=== PATIENT | male | born 1970 | race Two or more races ===

== ENCOUNTER 2016-06-28 12:22 | Inpatient (IN) | payer BC ==
[~2016-06-28] VITALS: Ht 172.7 cm; Wt 108.9 kg
--- NOTE | 2016-06-28 12:28 | PHYS DOC ---
Adult General Chief Complaint Chief Complaint: OTHER COMPLAINTS HPI HPI Patient is a 46 year old male presenting to the emergency department for evaluation of fever and positive blood cultures. He has been in [facility] since 2 days ago and yesterday morning started having fevers sweats diffuse weakness nausea vomiting headache cough. He was seen at an emergency department in [place] and they called him and told him that he needs to go to the emergency department for positive blood cultures. I called the phone number [phone] and spoke to the nurse practitioner at the [facility] and she told me that 2 out of 2 blood cultures were positive that were drawn at 240 yesterday and they were positive for gram-positive cocci suggestive of streptococci or enterococci. His chest x-ray was normal. Urinalysis was normal however his white blood cell count was 13.5. He says that he is feeling somewhat better and he is afebrile currently but still feels somewhat off. He denies any recent tick bites or rashes dysuria foreign travel or diarrhea. Review of Systems Review of Systems Constitutional: + fever and chills [] Eyes: Denies change in visual acuity, redness, or eye pain [] HENT: Denies nasal congestion or sore throat [] Respiratory: + cough. No shortness of breath [] Cardiovascular: No additional information not addressed in HPI [] GI: Denies abdominal pain. + nausea, vomiting. No bloody stools or diarrhea [] : Denies dysuria or hematuria [] Musculoskeletal: Denies back pain or joint pain. +arthralgias and myalgias Integument: Denies rash or skin lesions [] Neurologic: Denies headache, focal weakness or sensory changes [] Current Medications Current Medications Current Medications Medications (Trade) Dose Ordered Sig/[facility] Start Time Stop Time Status Last Admin Dose Admin Azithromycin 250 ml @ 250 mls/hr 1X ONCE 06/28/16 14:00 06/28/16 14:59 Ceftriaxone Sodium 2 gm/ Sodium Chloride 100 ml @ 200 mls/hr Q24H 06/28/16 14:00 06/28/16 14:17 200 MLS/HR Fentanyl Citrate (Fentanyl 2ml Vial) 50 mcg PRN Q2HR PRN 06/28/16 14:00 06/29/16 13:59 Ketorolac Tromethamine (Toradol) 30 mg 1X ONCE 06/28/16 13:00 06/28/16 13:01 DC 06/28/16 13:14 30 MG Ondansetron HCl (Zofran) 4 mg PRN Q8HRS PRN 06/28/16 14:00 06/29/16 13:59 Sodium Chloride 1,000 ml @ 1,000 mls/hr 1X ONCE 06/28/16 13:00 06/28/16 13:59 DC 06/28/16 13:16 1,000 MLS/HR Allergies Allergies Allergies Coded Allergies Type Severity Reaction Last Updated Verified No Known Drug Allergies 06/28/16 No Physical Exam Physical Exam Constitutional: Well developed, well nourished, no acute distress, non-toxic appearance. [] HENT: Normocephalic, atraumatic, bilateral external ears normal, oropharynx moist, no oral exudates, nose normal. [] Eyes: PERRLA, EOMI, conjunctiva normal, no discharge. [] Neck: Normal range of motion, no tenderness, supple, no stridor. [] Cardiovascular:Heart rate regular rhythm, no murmur [] Lungs & Thorax: Bilateral breath sounds clear to auscultation [] Abdomen: Bowel sounds normal, soft, no tenderness, no masses, no pulsatile masses. [] Skin: Warm, dry, no erythema, no rash. [] Back: No tenderness, no CVA tenderness. [] Extremities: No tenderness, no cyanosis, no clubbing, ROM intact, no edema. [] Neurologic: Alert and oriented X 3, normal motor function, normal sensory function, no focal deficits noted. [] Current Patient Data Vital Signs Vital Signs Date Time Temp Pulse Resp B/P (MAP) Pulse Ox O2 Delivery O2 Flow Rate FiO2 06/28/16 12:35 99.0 87 19 141/75 (97) 95 Room Air 99.0 Lab Values Laboratory Tests Test 06/28/16 12:45 White Blood Count 17.2 x10^3/uL (4.0-11.0) H Red Blood Count 4.89 x10^6/uL (4.30-5.70) Hemoglobin 14.9 g/dL (13.0-17.5) Hematocrit 42.7 % (39.0-53.0) Mean Corpuscular Volume 87 fL (79-100) Mean Corpuscular Hemoglobin 31 pg (25-35) Mean Corpuscular Hemoglobin Concent 35 g/dL (31-37) Red Cell Distribution Width 13.3 % (11.5-14.5) Platelet Count 189 x10^3/uL (140-400) Neutrophils (%) (Auto) 89 % (31-73) H Lymphocytes (%) (Auto) 8 % (24-48) L Monocytes (%) (Auto) 3 % (0-9) Eosinophils (%) (Auto) 0 % (0-3) Basophils (%) (Auto) 0 % (0-3) Neutrophils # (Auto) 15.3 x10^3uL (1.8-7.7) H Lymphocytes # (Auto) 1.3 x10^3/uL (1.0-4.8) Monocytes # (Auto) 0.5 x10^3/uL (0.0-1.1) Eosinophils # (Auto) 0.0 x10^3/uL (0.0-0.7) Basophils # (Auto) 0.0 x10^3/uL (0.0-0.2) Segmented Neutrophils % 54 % (35-66) Band Neutrophils % 33 % (0-9) H Lymphocytes % 10 % (24-48) L Monocytes % 2 % (0-10) Eosinophils % 1 % (0-5) Platelet Estimate Adequate (ADEQUATE) Prothrombin Time 15.1 SEC (11.7-14.0) H Prothrombin Time INR 1.3 (0.8-1.1) H PTT 32 SEC (24-38) Sodium Level 136 mmol/L (136-145) Potassium Level 3.1 mmol/L (3.5-5.1) L Chloride Level 101 mmol/L (98-107) Carbon Dioxide Level 29 mmol/L (21-32) Anion Gap 6 (6-14) Blood Urea Nitrogen 13 mg/dL (8-26) Creatinine 1.1 mg/dL (0.7-1.3) Estimated GFR (Cockcroft-Gault) 72.4 BUN/Creatinine Ratio 12 (6-20) Glucose Level 117 mg/dL (70-99) H Lactic Acid Level 1.1 mmol/L (0.4-2.0) Calcium Level 8.5 mg/dL (8.5-10.1) Magnesium Level 1.6 mg/dL (1.8-2.4) L Total Bilirubin 1.8 mg/dL (0.2-1.0) H Aspartate Amino Transferase (AST) 22 U/L (15-37) Alanine Aminotransferase (ALT) 34 U/L (16-63) Alkaline Phosphatase 52 U/L (46-116) Creatine Kinase 361 U/L (39-308) H C-Reactive Protein, Quantitative 239.9 mg/L (0-3.3) H Total Protein 7.1 g/dL (6.4-8.2) Albumin 3.2 g/dL (3.4-5.0) L Albumin/Globulin Ratio 0.8 (1.0-1.7) L Lipase 371 U/L (73-393) Laboratory Tests 06/28/16 12:45 Laboratory Tests 06/28/16 12:45 EKG EKG [] Radiology/Procedures Radiology/Procedures Indication: Cough and fever. Time of exam 12:58 PM FINDINGS: The right hemidiaphragm is mildly elevated. There is some increased density noted on the lateral view posteriorly. This may be within the right lung base and is suspicious for pneumonia. The left lung appears clear. No effusion or pneumothorax is seen. Impression: Findings suspect for pneumonia in the right lower lobe. DICTATED and SIGNED BY: AMAURI GALEANA MD DATE: 06/28/16 1313 Course & Med Decision Making Course & Med Decision Making Patient does not appear toxic however he is bacteremic confirmed by blood culture. Patient will be admitted for further evaluation and treatment. Patient started on rocephin and zithromax for now. Patient aware and agreeable with plan for admit. Dragon Disclaimer Dragon Disclaimer This electronic medical record was generated, in whole or in part, using a voice recognition dictation system. Departure Departure Impression: Primary Impression: CAP (community acquired pneumonia) Additional Impressions: Bacteremia Leukocytosis Disposition: 09 ADMITTED INPATIENT Admitting Physician: Estelle Maria Condition: GOOD Problem Qualifiers ATIF CUI DO June 28, 2016 12:28
[2016-06-28] MEDS ORDERED: KETOROLAC TROMETHAMINE 30 MG/ML INJ. IV ONE (13:00)
[2016-06-28] MEDS ORDERED: IV NORMAL SALINE 1000ML BAG 1,000 ML IV ONE (13:00)
[2016-06-28 13:02] LABS: BASO % 0 % (0-3); EOS % 0 % (0-3); HEMATOCRIT 42.7 % (39.0-53.0); HEMOGLOBIN 14.9 g/dL (13.0-17.5); LYMPH # 1.3 x10^3/uL (1.0-4.8); LYMPH % 8 % (24-48); MEAN CORPUSCULAR HEMOGLOBIN 31 pg (25-35); MEAN CORPUSCULAR HGB CONC 35 g/dL (31-37); MEAN CORPUSCULAR VOLUME 87 fL (79-100); MONO % 3 % (0-9); NEUT % 89 % (31-73); PLATELET COUNT 189 x10^3/uL (140-400); RED BLOOD COUNT 4.89 x10^6/uL (4.30-5.70); RED CELL DISTRIBUTION WIDTH 13.3 % (11.5-14.5); WHITE BLOOD COUNT 17.2 x10^3/uL (4.0-11.0)
--- NOTE | 2016-06-28 13:17 | RAD ---
Indication: Cough and fever. Time of exam 12:58 PM FINDINGS: The right hemidiaphragm is mildly elevated. There is some increased density noted on the lateral view posteriorly. This may be within the right lung base and is suspicious for pneumonia. The left lung appears clear. No effusion or pneumothorax is seen. Impression: Findings suspect for pneumonia in the right lower lobe.
[2016-06-28 13:18] LABS: INR 1.3 (0.8-1.1); PROTHROMBIN TIME PATIENT 15.1 SEC (11.7-14.0)
[2016-06-28 13:35] LABS: CALCIUM 8.5 mg/dL (8.5-10.1); CREATININE 1.1 mg/dL (0.7-1.3); GFR 72.4; POTASSIUM 3.1 mmol/L (3.5-5.1)
[2016-06-28 13:41] LABS: ALBUMIN 3.2 g/dL (3.4-5.0); ALBUMIN/GLOBULIN RATIO 0.8 (1.0-1.7); MAGNESIUM 1.6 mg/dL (1.8-2.4); TOTAL BILIRUBIN 1.8 mg/dL (0.2-1.0); TOTAL PROTEIN 7.1 g/dL (6.4-8.2)
[2016-06-28 13:51] LABS: % EOS 1 % (0-5)
[2016-06-28 13:54] LABS: C-REACTIVE PROTEIN 239.9 mg/L (0-3.3)
[2016-06-28] MEDS ORDERED: AZITHRMYCN 500MG IVPB FOR OMNI 250 ML IV ONE (14:00)
[2016-06-28] MEDS ORDERED: fentaNYL PF VIAL 100 MCG/2 ML VIAL IV PRN (14:00)
[2016-06-28] MEDS ORDERED: ONDANSETRON PF 4 MG/2 ML VIAL. IV PRN (14:00)
[2016-06-28 14:01] LABS: PLT ESTIMATE ADEQUATE (ADEQUATE)
[2016-06-28 15:31] LABS: BILIRUBIN,URINE NEGATIVE (NEG); GLUCOSE,URINE NEGATIVE (NEG); NITRITE,URINE NEGATIVE (NEG); PROTEIN,URINE NEGATIVE (NEG-TRACE)
[2016-06-28 15:35] VITALS: BP 132/84
[2016-06-28 15:39] LABS: BACTERIA,URINE 0 /HPF (0-FEW); RBC,URINE OCC /HPF (0-2); SQUAMOUS EPITHELIAL CELL,UR OCC /LPF; WBC,URINE 0 /HPF (0-4)
[2016-06-28] MEDS ORDERED: MAGNESIUM SULFATE 2GM 50 ML IV ONE (16:45)
[2016-06-28] MEDS ORDERED: POTASSIUM CHLORIDE 20 MEQ TABLET.ER. PO ONE (16:45)
--- NOTE | 2016-06-28 16:48 | PDOC1 ---
History and Physical Date of Admission Date of Admission DATE: 06/28/16 TIME: 16:40 Identification/Chief Complaint Chief Complaint confusion, fever yesterday Problems: Source Source: Chart review, Patient History of Present Illness History of Present Illness MR. Light, is a 46 year old male admit for fever 2 days ago and positive blood cultures. Was in [facility] since 2 days ago, was in the ER at [facility], for fevers sweats, nausea and some confusion. He complains of pain to me, but chronic right hip pain w. acute worsening is the main pain complaint. COugh reported in ER here, none to me. He was called by ER for pos blood cx, the ER called [phone], reported 2 out of 2 blood cultures gram-positive cocci suggestive of streptococci or enterococci. CXR normal there, and WBC 13. now RLL PNA and WBC 17 Past Medical History Cardiovascular: No pertinent hx Pulmonary: No pertinent hx GI: No pertinent hx Heme/Onc: No pertinent hx Hepatobiliary: No pertinent hx Psych: No pertinent hx Rheumatologic: No pertinent hx Infectious disease: No pertinent hx ENT: No pertinent hx Renal/: No pertinent hx Endocrine: No pertinent hx Dermatology: No pertinent hx Past Surgical History Past Surgical History: Other (right hip injection, wound) Family History Family History: No Significant Social History Smoke: No ALCOHOL: social Drugs: None Current Problem List Problem List Problems Medical Problems: (1) Bacteremia Status: Acute (2) CAP (community acquired pneumonia) Status: Acute (3) Leukocytosis Status: Acute Problems: Current Medications Current Medications Current Medications Sodium Chloride 1,000 ml @ 1,000 mls/hr 1X ONCE IV Last administered on 13:16; Start 06/28/16 at 13:00; Stop 06/28/16 at 13:59; Status DC Ketorolac Tromethamine (Toradol) 30 mg 1X ONCE IV Last administered on 13:14; Start 06/28/16 at 13:00; Stop 06/28/16 at 13:01; Status DC Ceftriaxone Sodium 2 gm/ Sodium Chloride 100 ml @ 200 mls/hr Q24H IV Last administered on 06/28/16 14:17; Start 06/28/16 at 14:00 Azithromycin 250 ml @ 250 mls/hr 1X ONCE IV ; Start 06/28/16 at 14:00; Stop at 14:59; Status DC Ondansetron HCl (Zofran) 4 mg PRN Q8HRS PRN IV NAUSEA/VOMITING; Start 06/28/16 at 14:00; Stop 06/29/16 at 13:59 Fentanyl Citrate (Fentanyl 2ml Vial) 50 mcg PRN Q2HR PRN IV PAIN Last administered on 06/28/16t 16:21; Start 06/28/16 at 14:00; Stop 06/29/16 at 13:59 Magnesium Sulfate/ Dextrose 50 ml @ 25 mls/hr 1X ONCE IV ; Start 06/28/16 at 16 :30; Stop 06/28/16 at 18:29; Status UNV Potassium Chloride (Klor-Con) 40 meq 1X ONCE PO ; Start 06/28/16 at 16:30; Stop 06/28/16 at 16:31; Status UNV Allergies Allergies: Coded Allergies: No Known Drug Allergies (Unverified , 06/28/16) ROS Review of System 20 lbs weight gain 6 mos, stress eating, General: YES: Chills, Fatigue, No: Night Sweats, Appetite, Other PSYCHOLOGICAL ROS: No: Anxiety, Behavioral Disorder, Concentration difficultie , Decreased libido, Depression, Disorientation, Hallucinations, Hostility, Irritablity, Memory difficulties, Mood Swings, Obsessive thoughts, Physical abuse, Sexual abuse, Sleep disturbances, Suicidal ideation, Other HEENT: YES: Heacaches, No: Visual Changes, Hearing change, Nasal congestion, Nasal discharge, Oral lesions, Sinus pain, Sore Throat, Epistaxis, Sneezing, Snoring, Tinnitus, Vertigo, Vocal changes, Other Respiratory: YES: Cough, No: Hemoptysis, Orthopnea, Pleuritic Pain, Shortness of breath, SOB with excertion, Sputum Changes, Stridor, Tachypnea, Wheezing, Other Cardiovascular: No Chest Pain, No Palpitations, No Orthopnea, No Paroxysmal Noc. Dyspnea, No Edema, No Lt Headedness, No Other Gastrointestinal: No Nausea, No Vomiting, No Abdominal Pain, No Diarrhea, No Constipation, No Melena, No Hematochezia, No Other Genitourinary: No Dysuria, No Frequency, No Incontinence, No Hematuria, No Retention, No Discharge, No Urgency, No Pain, No Flank Pain, No Other, No , No , No , No , No , No , No Musculoskeletal: Yes Pain In: (right hip, chronic), No Gait Disturbance, No Joint Pain, No Joint Stiffness, No Joint Swelling, No Muscle Pain, No Muscular Weakness, No Swelling In:, No Other Neurological: Yes Confusion (yesterday, better today), No Behavorial Changes, No Bowel/Bladder ControlChng, No Dizziness, No Gait Disturbance, No Headaches, No Impaired Coord/balance, No Memory Loss, No Numbness/Tingling, No Seizures, No Speech Problems, No Tremors, No Visual Changes, No Weakness, No Other Skin: Yes Dry Skin, No Eczema, No Hair Changes, No Lumps, No Mole Changes, No Mottling, No Nail Changes, No Pruritus, No Rash, No Skin Lesion Changes, No Other, No Acne Physical Exam Physical Exam no menigismus, no psoas sign, no photophobia, complains of minimal phonophobia, General: Alert, Oriented X3, Cooperative, No acute distress HEENT: Atraumatic, PERRLA, EOMI, Mucous membr. moist/pink Lungs: Clear to auscultation, Normal air movement Heart: S1S2, no murmurs Abdomen: Normal bowel sounds, Soft, No tenderness Rectal Exam: not examined Extremities: No clubbing, No cyanosis, No edema, Normal pulses Skin: No rashes, No breakdown, No significant lesion Psych/Mental Status: Mental status NL Vitals Vitals Vital Signs Date Time Temp Pulse Resp B/P (MAP) Pulse Ox O2 Delivery O2 Flow Rate FiO2 06/28/16 16:21 Room Air 06/28/16 15:35 98.6 75 20 132/84 (100) 95 98.6 Labs Labs Laboratory Tests Test 06/28/16 12:45 06/28/16 15:25 White Blood Count 17.2 x10^3/uL (4.0-11.0) Red Blood Count 4.89 x10^6/uL (4.30-5.70) Hemoglobin 14.9 g/dL (13.0-17.5) Hematocrit 42.7 % (39.0-53.0) Mean Corpuscular Volume 87 fL (79-100) Mean Corpuscular Hemoglobin 31 pg (25-35) Mean Corpuscular Hemoglobin Concent 35 g/dL (31-37) Red Cell Distribution Width 13.3 % (11.5-14.5) Platelet Count 189 x10^3/uL (140-400) Neutrophils (%) (Auto) 89 % (31-73) Lymphocytes (%) (Auto) 8 % (24-48) Monocytes (%) (Auto) 3 % (0-9) Eosinophils (%) (Auto) 0 % (0-3) Basophils (%) (Auto) 0 % (0-3) Neutrophils # (Auto) 15.3 x10^3uL (1.8-7.7) Lymphocytes # (Auto) 1.3 x10^3/uL (1.0-4.8) Monocytes # (Auto) 0.5 x10^3/uL (0.0-1.1) Eosinophils # (Auto) 0.0 x10^3/uL (0.0-0.7) Basophils # (Auto) 0.0 x10^3/uL (0.0-0.2) Segmented Neutrophils % 54 % (35-66) Band Neutrophils % 33 % (0-9) Lymphocytes % 10 % (24-48) Monocytes % 2 % (0-10) Eosinophils % 1 % (0-5) Platelet Estimate Adequate (ADEQUATE) Prothrombin Time 15.1 SEC (11.7-14.0) Prothromb Time International Ratio 1.3 (0.8-1.1) Activated Partial Thromboplast Time 32 SEC (24-38) Sodium Level 136 mmol/L (136-145) Potassium Level 3.1 mmol/L (3.5-5.1) Chloride Level 101 mmol/L (98-107) Carbon Dioxide Level 29 mmol/L (21-32) Anion Gap 6 (6-14) Blood Urea Nitrogen 13 mg/dL (8-26) Creatinine 1.1 mg/dL (0.7-1.3) Estimated GFR (Cockcroft-Gault) 72.4 BUN/Creatinine Ratio 12 (6-20) Glucose Level 117 mg/dL (70-99) Lactic Acid Level 1.1 mmol/L (0.4-2.0) Calcium Level 8.5 mg/dL (8.5-10.1) Magnesium Level 1.6 mg/dL (1.8-2.4) Total Bilirubin 1.8 mg/dL (0.2-1.0) Aspartate Amino Transf (AST/SGOT) 22 U/L (15-37) Alanine Aminotransferase (ALT/SGPT) 34 U/L (16-63) Alkaline Phosphatase 52 U/L (46-116) Creatine Kinase 361 U/L (39-308) C-Reactive Protein, Quantitative 239.9 mg/L (0-3.3) Total Protein 7.1 g/dL (6.4-8.2) Albumin 3.2 g/dL (3.4-5.0) Albumin/Globulin Ratio 0.8 (1.0-1.7) Lipase 371 U/L (73-393) Urine Collection Type Unknown Urine Color Yellow Urine Clarity Clear Urine pH 7.0 Urine Specific Angela 1.010 Urine Protein Negative mg/dL (NEG-TRACE) Urine Glucose (UA) Negative mg/dL (NEG) Urine Ketones (Stick) Negative mg/dL (NEG) Urine Blood Negative (NEG) Urine Nitrite Negative (NEG) Urine Bilirubin Negative (NEG) Urine Urobilinogen Dipstick 1.0 mg/dL (0.2 mg/dL) Urine Leukocyte Esterase Negative (NEG) Urine RBC Occ /HPF (0-2) Urine WBC 0 /HPF (0-4) Urine Squamous Epithelial Cells Occ /LPF Urine Bacteria 0 /HPF (0-FEW) Urine Mucus Slight /LPF Laboratory Tests Test 06/28/16 12:45 06/28/16 15:25 White Blood Count 17.2 x10^3/uL (4.0-11.0) Red Blood Count 4.89 x10^6/uL (4.30-5.70) Hemoglobin 14.9 g/dL (13.0-17.5) Hematocrit 42.7 % (39.0-53.0) Mean Corpuscular Volume 87 fL (79-100) Mean Corpuscular Hemoglobin 31 pg (25-35) Mean Corpuscular Hemoglobin Concent 35 g/dL (31-37) Red Cell Distribution Width 13.3 % (11.5-14.5) Platelet Count 189 x10^3/uL (140-400) Neutrophils (%) (Auto) 89 % (31-73) Lymphocytes (%) (Auto) 8 % (24-48) Monocytes (%) (Auto) 3 % (0-9) Eosinophils (%) (Auto) 0 % (0-3) Basophils (%) (Auto) 0 % (0-3) Neutrophils # (Auto) 15.3 x10^3uL (1.8-7.7) Lymphocytes # (Auto) 1.3 x10^3/uL (1.0-4.8) Monocytes # (Auto) 0.5 x10^3/uL (0.0-1.1) Eosinophils # (Auto) 0.0 x10^3/uL (0.0-0.7) Basophils # (Auto) 0.0 x10^3/uL (0.0-0.2) Segmented Neutrophils % 54 % (35-66) Band Neutrophils % 33 % (0-9) Lymphocytes % 10 % (24-48) Monocytes % 2 % (0-10) Eosinophils % 1 % (0-5) Platelet Estimate Adequate (ADEQUATE) Prothrombin Time 15.1 SEC (11.7-14.0) Prothromb Time International Ratio 1.3 (0.8-1.1) Activated Partial Thromboplast Time 32 SEC (24-38) Sodium Level 136 mmol/L (136-145) Potassium Level 3.1 mmol/L (3.5-5.1) Chloride Level 101 mmol/L (98-107) Carbon Dioxide Level 29 mmol/L (21-32) Anion Gap 6 (6-14) Blood Urea Nitrogen 13 mg/dL (8-26) Creatinine 1.1 mg/dL (0.7-1.3) Estimated GFR (Cockcroft-Gault) 72.4 BUN/Creatinine Ratio 12 (6-20) Glucose Level 117 mg/dL (70-99) Lactic Acid Level 1.1 mmol/L (0.4-2.0) Calcium Level 8.5 mg/dL (8.5-10.1) Magnesium Level 1.6 mg/dL (1.8-2.4) Total Bilirubin 1.8 mg/dL (0.2-1.0) Aspartate Amino Transf (AST/SGOT) 22 U/L (15-37) Alanine Aminotransferase (ALT/SGPT) 34 U/L (16-63) Alkaline Phosphatase 52 U/L (46-116) Creatine Kinase 361 U/L (39-308) C-Reactive Protein, Quantitative 239.9 mg/L (0-3.3) Total Protein 7.1 g/dL (6.4-8.2) Albumin 3.2 g/dL (3.4-5.0) Albumin/Globulin Ratio 0.8 (1.0-1.7) Lipase 371 U/L (73-393) Urine Collection Type Unknown Urine Color Yellow Urine Clarity Clear Urine pH 7.0 Urine Specific Angela 1.010 Urine Protein Negative mg/dL (NEG-TRACE) Urine Glucose (UA) Negative mg/dL (NEG) Urine Ketones (Stick) Negative mg/dL (NEG) Urine Blood Negative (NEG) Urine Nitrite Negative (NEG) Urine Bilirubin Negative (NEG) Urine Urobilinogen Dipstick 1.0 mg/dL (0.2 mg/dL) Urine Leukocyte Esterase Negative (NEG) Urine RBC Occ /HPF (0-2) Urine WBC 0 /HPF (0-4) Urine Squamous Epithelial Cells Occ /LPF Urine Bacteria 0 /HPF (0-FEW) Urine Mucus Slight /LPF VTE Prophylaxis Ordered VTE Prophylaxis Devices: No VTE Pharmacological Prophylaxi: Yes Assessment/Plan Assessment/Plan pneumonia, community acq leukocytosis, not sepsis criteria, no fever, bacteremia from OSH, consult ID recent confusion, he reports improved obesity, BMI 36 LIZZ NUNES MD June 28, 2016 16:48
[2016-06-28] MEDS ORDERED: VANCOMYCIN 2 GM in IV NORMAL SALINE 500ML BAG 500 ML IV ONE (17:00)
[2016-06-28] MEDS: VANCOMYCIN PER PHARMACY MC PRN (17:39)
[2016-06-28 19:00] VITALS: BP 151/82
[2016-06-28] MEDS: ENOXAPARIN 40 MG/0.4 ML SYRINGE. SQ SCH (20:46)
[2016-06-28] MEDS: ACETAMINOPHEN 325 MG TABLET. PO PRN (20:46)
[2016-06-28 23:00] VITALS: BP 142/82
[2016-06-29] MEDS: VANCOMYCIN 1.5 GM in IV NORMAL SALINE 500ML BAG 500 ML IV SCH ×3 (01:42→17:38)
[2016-06-29 03:00] VITALS: BP 135/79
[2016-06-29] MEDS: ACETAMINOPHEN 325 MG TABLET. PO PRN ×2 (04:13→13:55)
[2016-06-29 05:44] LABS: BASO % 0 % (0-3); EOS % 1 % (0-3); HEMATOCRIT 39.4 % (39.0-53.0); HEMOGLOBIN 13.9 g/dL (13.0-17.5); LYMPH # 1.4 x10^3/uL (1.0-4.8); LYMPH % 10 % (24-48); MEAN CORPUSCULAR HEMOGLOBIN 31 pg (25-35); MEAN CORPUSCULAR HGB CONC 35 g/dL (31-37); MEAN CORPUSCULAR VOLUME 88 fL (79-100); MONO % 3 % (0-9); NEUT % 86 % (31-73); PLATELET COUNT 176 x10^3/uL (140-400); RED BLOOD COUNT 4.48 x10^6/uL (4.30-5.70); RED CELL DISTRIBUTION WIDTH 13.2 % (11.5-14.5)
[2016-06-29 06:07] LABS: CREATININE 0.9 mg/dL (0.7-1.3); GFR 91.3; POTASSIUM 3.5 mmol/L (3.5-5.1)
[2016-06-29 06:08] LABS: ALBUMIN 2.8 g/dL (3.4-5.0); DIRECT BILIRUBIN 0.3 mg/dL (0.0-0.2); TOTAL BILIRUBIN 1.1 mg/dL (0.2-1.0)
[2016-06-29 07:00] VITALS: BP 132/79
[2016-06-29] MEDS ORDERED: AZITHROMYCIN 250 MG TABLET. PO SCH (09:00)
--- NOTE | 2016-06-29 09:09 | PDOC ---
Infectious Disease Note ROS ROS GEN: Denies fevers, chills, sweats HEENT: Denies blurred vision, sore throat CV: Denies chest pain RESP: Denies shortness of air, cough GI: Denies n/v/d NEURO: Denies confusion, dizziness MSK: Denies weakness, joint pain/swelling Vital Sign Vital Signs Vital Signs Date Time Temp Pulse Resp B/P (MAP) Pulse Ox O2 Delivery O2 Flow Rate FiO2 06/29/16 07:00 97.8 70 20 132/79 (96) 91 Room Air 97.8 Physical Exam PHYSICAL EXAM GENERAL: NAD, Alert HEENT: PERRL, OC/OP NECK: Supple, no JVD, no LN LUNGS: Clear HEART: S1S2, no gallop, no murmur ABD: Soft, NT, no organomegaly, no rebound EXT: No edema, no cyanosis HOG STICKER: Alert, oriented x 3, no focal neurologic deficit SKIN: No rash IV: ok Labs Lab Laboratory Tests Test 06/28/16 12:45 06/28/16 15:25 06/29/16 05:09 White Blood Count 17.2 x10^3/uL (4.0-11.0) 14.0 x10^3/uL (4.0-11.0) Red Blood Count 4.89 x10^6/uL (4.30-5.70) 4.48 x10^6/uL (4.30-5.70) Hemoglobin 14.9 g/dL (13.0-17.5) 13.9 g/dL (13.0-17.5) Hematocrit 42.7 % (39.0-53.0) 39.4 % (39.0-53.0) Mean Corpuscular Volume 87 fL (79-100) 88 fL (79-100) Mean Corpuscular Hemoglobin 31 pg (25-35) 31 pg (25-35) Mean Corpuscular Hemoglobin Concent 35 g/dL (31-37) 35 g/dL (31-37) Red Cell Distribution Width 13.3 % (11.5-14.5) 13.2 % (11.5-14.5) Platelet Count 189 x10^3/uL (140-400) 176 x10^3/uL (140-400) Neutrophils (%) (Auto) 89 % (31-73) 86 % (31-73) Lymphocytes (%) (Auto) 8 % (24-48) 10 % (24-48) Monocytes (%) (Auto) 3 % (0-9) 3 % (0-9) Eosinophils (%) (Auto) 0 % (0-3) 1 % (0-3) Basophils (%) (Auto) 0 % (0-3) 0 % (0-3) Neutrophils # (Auto) 15.3 x10^3uL (1.8-7.7) 12.0 x10^3uL (1.8-7.7) Lymphocytes # (Auto) 1.3 x10^3/uL (1.0-4.8) 1.4 x10^3/uL (1.0-4.8) Monocytes # (Auto) 0.5 x10^3/uL (0.0-1.1) 0.5 x10^3/uL (0.0-1.1) Eosinophils # (Auto) 0.0 x10^3/uL (0.0-0.7) 0.1 x10^3/uL (0.0-0.7) Basophils # (Auto) 0.0 x10^3/uL (0.0-0.2) 0.0 x10^3/uL (0.0-0.2) Segmented Neutrophils % 54 % (35-66) Band Neutrophils % 33 % (0-9) Lymphocytes % 10 % (24-48) Monocytes % 2 % (0-10) Eosinophils % 1 % (0-5) Platelet Estimate Adequate (ADEQUATE) Prothrombin Time 15.1 SEC (11.7-14.0) Prothromb Time International Ratio 1.3 (0.8-1.1) Activated Partial Thromboplast Time 32 SEC (24-38) Sodium Level 136 mmol/L (136-145) 137 mmol/L (136-145) Potassium Level 3.1 mmol/L (3.5-5.1) 3.5 mmol/L (3.5-5.1) Chloride Level 101 mmol/L (98-107) 104 mmol/L (98-107) Carbon Dioxide Level 29 mmol/L (21-32) 25 mmol/L (21-32) Anion Gap 6 (6-14) 8 (6-14) Blood Urea Nitrogen 13 mg/dL (8-26) 10 mg/dL (8-26) Creatinine 1.1 mg/dL (0.7-1.3) 0.9 mg/dL (0.7-1.3) Estimated GFR (Cockcroft-Gault) 72.4 91.3 BUN/Creatinine Ratio 12 (6-20) Glucose Level 117 mg/dL (70-99) 98 mg/dL (70-99) Lactic Acid Level 1.1 mmol/L (0.4-2.0) Calcium Level 8.5 mg/dL (8.5-10.1) 8.0 mg/dL (8.5-10.1) Magnesium Level 1.6 mg/dL (1.8-2.4) Total Bilirubin 1.8 mg/dL (0.2-1.0) 1.1 mg/dL (0.2-1.0) Aspartate Amino Transf (AST/SGOT) 22 U/L (15-37) 19 U/L (15-37) Alanine Aminotransferase (ALT/SGPT) 34 U/L (16-63) 31 U/L (16-63) Alkaline Phosphatase 52 U/L (46-116) 44 U/L (46-116) Creatine Kinase 361 U/L (39-308) C-Reactive Protein, Quantitative 239.9 mg/L (0-3.3) Total Protein 7.1 g/dL (6.4-8.2) 6.0 g/dL (6.4-8.2) Albumin 3.2 g/dL (3.4-5.0) 2.8 g/dL (3.4-5.0) Albumin/Globulin Ratio 0.8 (1.0-1.7) Lipase 371 U/L (73-393) Urine Collection Type Unknown Urine Color Yellow Urine Clarity Clear Urine pH 7.0 Urine Specific Duarte 1.010 Urine Protein Negative mg/dL (NEG-TRACE) Urine Glucose (UA) Negative mg/dL (NEG) Urine Ketones (Stick) Negative mg/dL (NEG) Urine Blood Negative (NEG) Urine Nitrite Negative (NEG) Urine Bilirubin Negative (NEG) Urine Urobilinogen Dipstick 1.0 mg/dL (0.2 mg/dL) Urine Leukocyte Esterase Negative (NEG) Urine RBC Occ /HPF (0-2) Urine WBC 0 /HPF (0-4) Urine Squamous Epithelial Cells Occ /LPF Urine Bacteria 0 /HPF (0-FEW) Urine Mucus Slight /LPF Direct Bilirubin 0.3 mg/dL (0.0-0.2) Objective Assessment Strep Pneumo sepsis - POA from [facility], [place] micro phone # [phone] - 06/27/16 Fever Leukocytosis/bandemia Right pneumonia Plan Plan of Care Added Vanc 06/28 D/c Azithromycin Cont Rocephin F/u sensitivities from [facility]. Will be available 06/30 F/u repeat cults Thank you # [phone] YANCI MCNEAL MD June 29, 2016 09:09
[2016-06-29 11:00] VITALS: BP 136/88
[2016-06-29] MEDS: VANCOMYCIN PER PHARMACY MC PRN ×2 (12:28→17:52)
[2016-06-29 15:00] VITALS: BP 138/83
--- NOTE | 2016-06-29 16:12 | PDOC ---
PROGRESS NOTES Chief Complaint Chief Complaint CAP ASSESSMENT AND PLAN: 1. RLL PNA: pos CXR; in light of bacteremia, azithro was stopped 2. Sepsis: Strep Pneumo ID.ed in outside facility. appreciate Dr Puckett's input and help w/ management. clinically stable 3. Leukocytosis: with massive left shift (33% bands), indicative of severe infection. improving 4. obesity, BMI 36 History of Present Illness History of Present Illness feels good, eager to get back home and work... no CP. SOB or palp. Vitals Vitals Vital Signs Date Time Temp Pulse Resp B/P (MAP) Pulse Ox O2 Delivery O2 Flow Rate FiO2 06/29/16 15:00 98.4 71 20 138/83 (101) 95 Room Air 98.4 Physical Exam General: Alert, Oriented X3, Cooperative, No acute distress Abdomen: Normal bowel sounds, Soft, No tenderness Extremities: No clubbing, No cyanosis, No edema, Normal pulses Skin: No rashes, No breakdown, No significant lesion Labs LABS Laboratory Tests Test 06/29/16 05:09 White Blood Count 14.0 x10^3/uL (4.0-11.0) Red Blood Count 4.48 x10^6/uL (4.30-5.70) Hemoglobin 13.9 g/dL (13.0-17.5) Hematocrit 39.4 % (39.0-53.0) Mean Corpuscular Volume 88 fL (79-100) Mean Corpuscular Hemoglobin 31 pg (25-35) Mean Corpuscular Hemoglobin Concent 35 g/dL (31-37) Red Cell Distribution Width 13.2 % (11.5-14.5) Platelet Count 176 x10^3/uL (140-400) Neutrophils (%) (Auto) 86 % (31-73) Lymphocytes (%) (Auto) 10 % (24-48) Monocytes (%) (Auto) 3 % (0-9) Eosinophils (%) (Auto) 1 % (0-3) Basophils (%) (Auto) 0 % (0-3) Neutrophils # (Auto) 12.0 x10^3uL (1.8-7.7) Lymphocytes # (Auto) 1.4 x10^3/uL (1.0-4.8) Monocytes # (Auto) 0.5 x10^3/uL (0.0-1.1) Eosinophils # (Auto) 0.1 x10^3/uL (0.0-0.7) Basophils # (Auto) 0.0 x10^3/uL (0.0-0.2) Sodium Level 137 mmol/L (136-145) Potassium Level 3.5 mmol/L (3.5-5.1) Chloride Level 104 mmol/L (98-107) Carbon Dioxide Level 25 mmol/L (21-32) Anion Gap 8 (6-14) Blood Urea Nitrogen 10 mg/dL (8-26) Creatinine 0.9 mg/dL (0.7-1.3) Estimated GFR (Cockcroft-Gault) 91.3 Glucose Level 98 mg/dL (70-99) Calcium Level 8.0 mg/dL (8.5-10.1) Total Bilirubin 1.1 mg/dL (0.2-1.0) Direct Bilirubin 0.3 mg/dL (0.0-0.2) Aspartate Amino Transf (AST/SGOT) 19 U/L (15-37) Alanine Aminotransferase (ALT/SGPT) 31 U/L (16-63) Alkaline Phosphatase 44 U/L (46-116) Total Protein 6.0 g/dL (6.4-8.2) Albumin 2.8 g/dL (3.4-5.0) HIV-1 Antibody Non reactive (Non Reactive) JOSELO MAC MD June 29, 2016 16:12
[2016-06-29 19:00] VITALS: BP 139/96
--- NOTE | 2016-06-29 20:12 | CARD ---
APPROVED REPORT EXAM: Two-dimensional and M-mode echocardiogram with Doppler and color Doppler. Other Information Quality : GoodHR: 80bpm Rhythm : NSR INDICATION Bacteremia RISK FACTORS Obesity 2D DIMENSIONS RVDd2.7 (2.9-3.5cm)Left Atrium(2D)4.7 (1.6-4.0cm) IVSd1.2 (0.7-1.1cm)Aortic Root(2D)2.8 (2.0-3.7cm) LVDd4.6 (3.9-5.9cm)LVOT Diameter2.3 (1.8-2.4cm) PWd1.2 (0.7-1.1cm)LVDs3.0 (2.5-4.0cm) FS (%) 34.9 %SV61.9 ml LVEF(%)64.2 (>50%) Aortic Valve LVOT Peak King.115.3cm/s Mitral Valve MV E Cxpgxrjp84.6cm/sMV E Peak Gr.3mmHg MV DECEL [id number] A Nnacfimx79.8cm/s MV E Mean Gr.1mmHgE/A Ratio1.5 MV A [id number] Pulmonary Valve PV Peak Vyzkupvd073.9cm/s Pulmonary Vein S1 Lkuwonlm35.7cm/sD2 Jscqxhqq77.9cm/s PVa [id number] LEFT VENTRICLE The left ventricle is normal size. There is normal left ventricular wall thickness. The left ventricu lar systolic function is normal and the ejection fraction is 65-70%. . There is normal LV segmental w all motion. The left ventricular diastolic function and filling is normal for age. RIGHT VENTRICLE The right ventricle is normal size. There is normal right ventricular wall thickness. The right ventr icular systolic function is normal. ATRIA The left atrium is mildly dilated. The right atrium size is normal. The interatrial septum is intact with no evidence for an atrial septal defect or patent foramen ovale as noted on 2-D or Doppler imagi ng. AORTIC VALVE The aortic valve is normal in structure and function. Doppler and Color Flow revealed no significant aortic regurgitation. There is no significant aortic valvular stenosis. There is no aortic valvular v egetation. MITRAL VALVE The mitral valve leaflets are mildly thickened. There is no evidence of mitral valve prolapse. There is no mitral valve stenosis. Doppler and Color Flow revealed no mitral valve regurgitation noted. TRICUSPID VALVE Doppler and Color Flow revealed no tricuspid valve regurgitation noted. There is no pulmonary hyperte nsion. PULMONIC VALVE The pulmonary valve is normal in structure and function. Doppler and Color Flow revealed no pulmonic valvular regurgitation. There is no pulmonic valvular stenosis. GREAT VESSELS The aortic root is normal in size. The ascending aorta is normal in size. The pulmonary artery is nor mal. The IVC is normal in size and collapses >50% with inspiration. PERICARDIAL EFFUSION There is no evidence of significant pericardial effusion. Critical Notification Critical Value: No <Conclusion> The left ventricle is normal size. There is normal left ventricular wall thickness. The left ventricular systolic function is normal and the ejection fraction is 65-70%.. The diastolic function is normal There is no evidence of significant pericardial effusion. The mitral valve leaflets are mildly thickened. There is no mitral valve stenosis. Doppler and Color Flow revealed no mitral valve regurgitation noted. The left atrium is mildly enlarged. There is no aortic stenosis or regurgitation The right ventricle is of a normal size with normal ssystolic function There is no tricuspid regugitation. The RVSP cannot be eswtimated The pulmonic valve is normal.
[2016-06-29] MEDS: ENOXAPARIN 40 MG/0.4 ML SYRINGE. SQ SCH (21:07)
[2016-06-29 23:00] VITALS: BP 135/91
[2016-06-30] MEDS: VANCOMYCIN 1.5 GM in IV NORMAL SALINE 500ML BAG 500 ML IV SCH ×3 (00:19→17:25)
[2016-06-30 03:00] VITALS: BP 133/95
--- NOTE | 2016-06-30 03:36 | CONS ---
DATE OF CONSULTATION: 06/29/2016 REQUESTING PHYSICIAN: Dr. Maria. REASON FOR CONSULTATION: Bacteremia at outside hospital. HISTORY OF PRESENT ILLNESS: The patient is a pleasant 46-year-old gentleman who works in a [employer] company. He traveled to [place], [place] this past Saturday on 06/26/2016 for a meeting. He states he went to this meeting, had no complications, went to his hotel, had no complications, but then Saturday morning, he awakened, had sudden onset of chills. Denies any ill contacts. He had nausea, vomiting, mild headache. No sinus issues, sore throat, or dry cough. No dysuria, frequency, or urgency. No rashes. No muscle aches or joint aches. He presented to [facility]. Labs were obtained. He was discharged and returned home where he continued to have low-grade fevers, dry cough and some nausea, vomiting. He was then notified that his blood cultures returned positive for a bacteria and was told to report to the ER. He presented to [facility] where the Emergency Room physician, Dr. Lemon called [facility] and was found that he had gram-positive cocci suggestive of strep or enterococcus in his blood. He was admitted to the hospital and placed on Rocephin, azithromycin and I was consulted. On the I did add vancomycin want to potentially cover enterococcus. Currently, the patient was seen upright in bed, states he is feeling somewhat better. No more nausea. His fevers settling down, he still has some more of a dry cough. PAST MEDICAL HISTORY: Positive for history of a right buttock infection requiring I and D and wound VAC placement approximately 7 years ago and now he denies any other past medical history. REVIEW OF SYSTEMS: Otherwise negative except as mentioned above. ALLERGIES: No known drug allergies. SOCIAL HISTORY: Again, works in a [employer] company, denies any ill contacts. Denies any tobacco, ____ alcohol. FAMILY HISTORY: Negative for any hypertension, diabetes, but his father did of lung cancer. CURRENT MEDICATIONS: Included Rocephin, azithromycin, Lovenox, fentanyl. Other meds are available and reviewed in the chart. PHYSICAL EXAMINATION: VITAL SIGNS: Temperature has been 100.1, currently 97.8, pulse 70, respirations 20, blood pressure 132/79, satting 91% on room air. CONSTITUTIONAL: He is a very pleasant gentleman. He is cooperative, in no acute distress. He is mildly obese. HEENT: Pupils equal and reactive. Normal conjunctivae. Oral cavity, pharynx is clear. NECK: Supple, full range of motion. LUNGS: Clear to auscultation bilaterally. HEART: S1, S2. ABDOMEN: Obese, soft, nontender, nondistended, positive bowel sounds. EXTREMITIES: No clubbing, cyanosis or gross edema. SKIN: Warm to touch without signs of rash. NEUROLOGIC: He is nonfocal, moves all extremities. PSYCHIATRIC: Affect is pleasant. LABORATORY DATA: White count on admission was 17.2 with 33% bands, today is 14, hemoglobin 13.9, platelets 176, neutrophils 86, creatinine of 0.9. He did have an elevated creatinine kinase of 361, lactic acid 1.1. Urinalysis was clean. Chest x-ray, suspect for right lower lobe pneumonia. IMPRESSION: 1. Strep pneumococcal sepsis present on admission, initially obtained from [facility] from the . I did discuss with their microbiology lab, phone number [phone]. 2. Fever. 3. Leukocytosis/bandemia. 4. Right pneumonia. RECOMMENDATIONS: Again, I added vancomycin on the . We will discontinue the azithromycin for now, continue the Rocephin per [facility], sensitivity should be available on 06/30/2016. Follow up on the repeat cultures have been drawn. Thank you for allowing me to participate in the patient's care. Should you have any questions, please do not hesitate to contact me. YANCI MCNEAL MD DR: LINDA/eufemia JOB#: [id number] / [id number]
[2016-06-30 05:19] LABS: BASO % 1 % (0-3); EOS % 6 % (0-3); HEMATOCRIT 39.7 % (39.0-53.0); HEMOGLOBIN 13.7 g/dL (13.0-17.5); LYMPH # 1.9 x10^3/uL (1.0-4.8); LYMPH % 26 % (24-48); MEAN CORPUSCULAR HEMOGLOBIN 31 pg (25-35); MEAN CORPUSCULAR HGB CONC 34 g/dL (31-37); MEAN CORPUSCULAR VOLUME 89 fL (79-100); MONO % 7 % (0-9); NEUT % 61 % (31-73); PLATELET COUNT 191 x10^3/uL (140-400); RED BLOOD COUNT 4.47 x10^6/uL (4.30-5.70); RED CELL DISTRIBUTION WIDTH 13.4 % (11.5-14.5); WHITE BLOOD COUNT 7.4 x10^3/uL (4.0-11.0)
[2016-06-30 05:55] LABS: CALCIUM 7.9 mg/dL (8.5-10.1); GFR 80.8; POTASSIUM 3.4 mmol/L (3.5-5.1)
[2016-06-30 07:00] VITALS: BP 126/88
[2016-06-30 11:00] VITALS: BP 149/99
--- NOTE | 2016-06-30 11:50 | PDOC ---
Infectious Disease Note Subjective Subjective Feeling alot better today BEJARANO gone ROS ROS GEN: Denies fevers, chills, sweats HEENT: Denies sore throat CV: Denies chest pain RESP: Denies shortness of air, cough GI: Denies n/v/d NEURO: Denies confusion, dizziness MSK: Denies weakness, joint pain/swelling Vital Sign Vital Signs Vital Signs Date Time Temp Pulse Resp B/P (MAP) Pulse Ox O2 Delivery O2 Flow Rate FiO2 06/30/16 08:20 Room Air 06/30/16 07:00 98.7 18 18 126/88 (101) 95 98.7 Physical Exam PHYSICAL EXAM GENERAL: NAD, Alert HEENT: PERRL, OC/OP NECK: Supple, no JVD, no LN LUNGS: Clear HEART: S1S2, no gallop, no murmur ABD: Soft, NT, no organomegaly, no rebound EXT: No edema, no cyanosis 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, oriented x 3, no focal neurologic deficit SKIN: No rash IV: ok Labs Lab Laboratory Tests Test 06/29/16 16:25 06/30/16 04:40 Vancomycin Level Trough 19.6 mcg/mL (10.0-20.0) Vancomycin Last Dose Date 06/29/16 Vancomycin Last Dose Time 0900 White Blood Count 7.4 x10^3/uL (4.0-11.0) Red Blood Count 4.47 x10^6/uL (4.30-5.70) Hemoglobin 13.7 g/dL (13.0-17.5) Hematocrit 39.7 % (39.0-53.0) Mean Corpuscular Volume 89 fL (79-100) Mean Corpuscular Hemoglobin 31 pg (25-35) Mean Corpuscular Hemoglobin Concent 34 g/dL (31-37) Red Cell Distribution Width 13.4 % (11.5-14.5) Platelet Count 191 x10^3/uL (140-400) Neutrophils (%) (Auto) 61 % (31-73) Lymphocytes (%) (Auto) 26 % (24-48) Monocytes (%) (Auto) 7 % (0-9) Eosinophils (%) (Auto) 6 % (0-3) Basophils (%) (Auto) 1 % (0-3) Neutrophils # (Auto) 4.5 x10^3uL (1.8-7.7) Lymphocytes # (Auto) 1.9 x10^3/uL (1.0-4.8) Monocytes # (Auto) 0.5 x10^3/uL (0.0-1.1) Eosinophils # (Auto) 0.4 x10^3/uL (0.0-0.7) Basophils # (Auto) 0.0 x10^3/uL (0.0-0.2) Sodium Level 140 mmol/L (136-145) Potassium Level 3.4 mmol/L (3.5-5.1) Chloride Level 105 mmol/L (98-107) Carbon Dioxide Level 28 mmol/L (21-32) Anion Gap 7 (6-14) Blood Urea Nitrogen 9 mg/dL (8-26) Creatinine 1.0 mg/dL (0.7-1.3) Estimated GFR (Cockcroft-Gault) 80.8 Glucose Level 110 mg/dL (70-99) Calcium Level 7.9 mg/dL (8.5-10.1) Creatine Kinase 116 U/L (39-308) Micro 06/28. BLOOD CULT RESULT 1 Preliminary Comment Streptococcus pneumoniae Objective Assessment 1. Strep pneumococcal sepsis present on admission, initially obtained from [facility] from the [facility]. Microbiology lab. phone number [phone] -Yjtv with micro at [place] today. Strep pneumo sensitive to: vanc, PCN, meropenem , ceftriaxone. Final pending 2. Fever. better 3. Leukocytosis/bandemia. 4. Right pneumonia. Plan Plan of Care Vanc 06/28 and Rocephin -previous abx: azithromycin D/w Patient seen and examined. Chart reviewed in detail. Case discussed with ORDINARY SEAMAN. Agree with above plan. GARRY ADAM APRN June 30, 2016 11:50 MADELINE DANIELS MD June 30, 2016 14:35
[2016-06-30] MEDS: VANCOMYCIN PER PHARMACY MC PRN (11:51)
[2016-06-30 15:00] VITALS: BP 138/90
[2016-06-30 19:15] VITALS: BP 151/106
--- NOTE | 2016-06-30 20:14 | PDOC ---
PROGRESS NOTES Chief Complaint Chief Complaint CAP ASSESSMENT AND PLAN: 1. RLL PNA: pos CXR; in light of bacteremia, azithro was stopped 2. Sepsis: Strep Pneumo id.ed in outside facility. echo without vegetations. on ceftriax and vanco, ID service following. 3. Leukocytosis: with massive left shift (33% bands), indicative of severe infection. improving 4. obesity, BMI 36 5. Dispo: pt would like to go home [place]. ?PO Abx vs IV with PICC - as per ID service History of Present Illness History of Present Illness asymptomatic Vitals Vitals Vital Signs Date Time Temp Pulse Resp B/P (MAP) Pulse Ox O2 Delivery O2 Flow Rate FiO2 06/30/16 19:15 98.1 63 18 151/106 (121) 90 Room Air 98.1 Physical Exam General: Alert, Oriented X3, Cooperative, No acute distress Heart: Regular rate Lungs: Clear Abdomen: Normal bowel sounds, Soft, No tenderness Extremities: No clubbing, No cyanosis, No edema, Normal pulses Skin: No rashes, No breakdown, No significant lesion Labs LABS Laboratory Tests Test 06/30/16 04:40 White Blood Count 7.4 x10^3/uL (4.0-11.0) Red Blood Count 4.47 x10^6/uL (4.30-5.70) Hemoglobin 13.7 g/dL (13.0-17.5) Hematocrit 39.7 % (39.0-53.0) Mean Corpuscular Volume 89 fL (79-100) Mean Corpuscular Hemoglobin 31 pg (25-35) Mean Corpuscular Hemoglobin Concent 34 g/dL (31-37) Red Cell Distribution Width 13.4 % (11.5-14.5) Platelet Count 191 x10^3/uL (140-400) Neutrophils (%) (Auto) 61 % (31-73) Lymphocytes (%) (Auto) 26 % (24-48) Monocytes (%) (Auto) 7 % (0-9) Eosinophils (%) (Auto) 6 % (0-3) Basophils (%) (Auto) 1 % (0-3) Neutrophils # (Auto) 4.5 x10^3uL (1.8-7.7) Lymphocytes # (Auto) 1.9 x10^3/uL (1.0-4.8) Monocytes # (Auto) 0.5 x10^3/uL (0.0-1.1) Eosinophils # (Auto) 0.4 x10^3/uL (0.0-0.7) Basophils # (Auto) 0.0 x10^3/uL (0.0-0.2) Sodium Level 140 mmol/L (136-145) Potassium Level 3.4 mmol/L (3.5-5.1) Chloride Level 105 mmol/L (98-107) Carbon Dioxide Level 28 mmol/L (21-32) Anion Gap 7 (6-14) Blood Urea Nitrogen 9 mg/dL (8-26) Creatinine 1.0 mg/dL (0.7-1.3) Estimated GFR (Cockcroft-Gault) 80.8 Glucose Level 110 mg/dL (70-99) Calcium Level 7.9 mg/dL (8.5-10.1) Creatine Kinase 116 U/L (39-308) JOSELO MAC MD June 30, 2016 20:14
[2016-06-30] MEDS: ENOXAPARIN 40 MG/0.4 ML SYRINGE. SQ SCH (20:40)
[2016-06-30 23:17] VITALS: BP 147/97
[2016-07-01] MEDS: VANCOMYCIN 1.5 GM in IV NORMAL SALINE 500ML BAG 500 ML IV SCH ×3 (01:07→18:50)
[2016-07-01 03:14] VITALS: BP 142/79
[2016-07-01 05:41] LABS: BASO # 0.1 x10^3/uL (0.0-0.2); BASO % 1 % (0-3); EOS % 7 % (0-3); HEMATOCRIT 41.9 % (39.0-53.0); HEMOGLOBIN 14.7 g/dL (13.0-17.5); LYMPH # 2.1 x10^3/uL (1.0-4.8); LYMPH % 30 % (24-48); MEAN CORPUSCULAR HEMOGLOBIN 31 pg (25-35); MEAN CORPUSCULAR HGB CONC 35 g/dL (31-37); MEAN CORPUSCULAR VOLUME 88 fL (79-100); MONO % 10 % (0-9); NEUT % 53 % (31-73); PLATELET COUNT 227 x10^3/uL (140-400); RED BLOOD COUNT 4.75 x10^6/uL (4.30-5.70); RED CELL DISTRIBUTION WIDTH 13.4 % (11.5-14.5); WHITE BLOOD COUNT 6.9 x10^3/uL (4.0-11.0)
[2016-07-01 06:05] LABS: CALCIUM 8.7 mg/dL (8.5-10.1); CREATININE 0.9 mg/dL (0.7-1.3); GFR 91.3; POTASSIUM 3.4 mmol/L (3.5-5.1)
[2016-07-01 07:00] VITALS: BP 135/87
--- NOTE | 2016-07-01 09:41 | PDOC ---
Infectious Disease Note Subjective Subjective Comfortable Feeling much better Wants to go home ROS ROS GEN: Denies fevers, chills, sweats HEENT: Denies sore throat CV: Denies chest pain RESP: Denies shortness of air, cough GI: Denies n/v/d NEURO: Denies confusion, dizziness or headaches MSK: Denies weakness, joint pain/swelling Vital Sign Vital Signs Vital Signs Date Time Temp Pulse Resp B/P (MAP) Pulse Ox O2 Delivery O2 Flow Rate FiO2 07/01/16 07:50 Room Air 07/01/16 07:00 98.3 59 20 135/87 (103) 95 98.3 Physical Exam PHYSICAL EXAM GENERAL: Lying down, relaxed appearance HEENT: PERRL, OC/OP NECK: Supple, no JVD, no LN LUNGS: Clear HEART: S1S2, no gallop, no murmur ABD: Soft, NT EXT: No edema, no cyanosis 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, oriented x 3, no focal neurologic deficit SKIN: No rash IV: ok Labs Lab Laboratory Tests Test 07/01/16 05:05 White Blood Count 6.9 x10^3/uL (4.0-11.0) Red Blood Count 4.75 x10^6/uL (4.30-5.70) Hemoglobin 14.7 g/dL (13.0-17.5) Hematocrit 41.9 % (39.0-53.0) Mean Corpuscular Volume 88 fL (79-100) Mean Corpuscular Hemoglobin 31 pg (25-35) Mean Corpuscular Hemoglobin Concent 35 g/dL (31-37) Red Cell Distribution Width 13.4 % (11.5-14.5) Platelet Count 227 x10^3/uL (140-400) Neutrophils (%) (Auto) 53 % (31-73) Lymphocytes (%) (Auto) 30 % (24-48) Monocytes (%) (Auto) 10 % (0-9) Eosinophils (%) (Auto) 7 % (0-3) Basophils (%) (Auto) 1 % (0-3) Neutrophils # (Auto) 3.7 x10^3uL (1.8-7.7) Lymphocytes # (Auto) 2.1 x10^3/uL (1.0-4.8) Monocytes # (Auto) 0.7 x10^3/uL (0.0-1.1) Eosinophils # (Auto) 0.5 x10^3/uL (0.0-0.7) Basophils # (Auto) 0.1 x10^3/uL (0.0-0.2) Sodium Level 141 mmol/L (136-145) Potassium Level 3.4 mmol/L (3.5-5.1) Chloride Level 104 mmol/L (98-107) Carbon Dioxide Level 26 mmol/L (21-32) Anion Gap 11 (6-14) Blood Urea Nitrogen 12 mg/dL (8-26) Creatinine 0.9 mg/dL (0.7-1.3) Estimated GFR (Cockcroft-Gault) 91.3 Glucose Level 97 mg/dL (70-99) Calcium Level 8.7 mg/dL (8.5-10.1) Micro Objective Assessment 1. Strep pneumococcal sepsis present on admission, initially obtained from [facility] from the [facility]. Microbiology lab. phone number [phone] -Uwhe with micro at [place] today. Strep pneumo sensitive to: vanc, PCN, meropenem , ceftriaxone. Final pending 2. Fever. better 3. Leukocytosis/bandemia. resolved 4. Right pneumonia. Plan Plan of Care Vanc 06/28 and Rocephin- wean soon -previous abx: azithromycin copy micro from [place] requested Patient seen and examined. Chart reviewed. Case discussed with MACHINE SANDER. Agree with above plan GARRY ADAM APRN July 01, 2016 09:41 MADELINE DANIELS MD July 01, 2016 16:13
[2016-07-01 11:00] VITALS: BP 146/93
--- NOTE | 2016-07-01 12:56 | PDOC ---
PROGRESS NOTES Chief Complaint Chief Complaint CAP ASSESSMENT AND PLAN: 1. RLL PNA: pos CXR; in light of bacteremia, azithro was stopped 2. Sepsis: Strep Pneumo id.ed in outside facility. echo without vegetations. on ceftriax and vanco, ID service following. PICC placement today for anticipated d/c home w/ IV abx, latest in AM 3. Leukocytosis: with massive left shift (33% bands), indicative of severe infection. improving 4. obesity, BMI 36 5. Dispo: pt would like to go home [place]. awaiting ID input History of Present Illness History of Present Illness asymptomatic Vitals Vitals Vital Signs Date Time Temp Pulse Resp B/P (MAP) Pulse Ox O2 Delivery O2 Flow Rate FiO2 07/01/16 11:00 98.6 58 20 146/93 (110) 97 Room Air 98.6 Physical Exam General: Alert, Oriented X3, Cooperative, No acute distress Heart: Regular rate Lungs: Clear Abdomen: Normal bowel sounds, Soft, No tenderness Extremities: No clubbing, No cyanosis, No edema, Normal pulses Skin: No rashes, No breakdown, No significant lesion Labs LABS Laboratory Tests Test 07/01/16 05:05 White Blood Count 6.9 x10^3/uL (4.0-11.0) Red Blood Count 4.75 x10^6/uL (4.30-5.70) Hemoglobin 14.7 g/dL (13.0-17.5) Hematocrit 41.9 % (39.0-53.0) Mean Corpuscular Volume 88 fL (79-100) Mean Corpuscular Hemoglobin 31 pg (25-35) Mean Corpuscular Hemoglobin Concent 35 g/dL (31-37) Red Cell Distribution Width 13.4 % (11.5-14.5) Platelet Count 227 x10^3/uL (140-400) Neutrophils (%) (Auto) 53 % (31-73) Lymphocytes (%) (Auto) 30 % (24-48) Monocytes (%) (Auto) 10 % (0-9) Eosinophils (%) (Auto) 7 % (0-3) Basophils (%) (Auto) 1 % (0-3) Neutrophils # (Auto) 3.7 x10^3uL (1.8-7.7) Lymphocytes # (Auto) 2.1 x10^3/uL (1.0-4.8) Monocytes # (Auto) 0.7 x10^3/uL (0.0-1.1) Eosinophils # (Auto) 0.5 x10^3/uL (0.0-0.7) Basophils # (Auto) 0.1 x10^3/uL (0.0-0.2) Sodium Level 141 mmol/L (136-145) Potassium Level 3.4 mmol/L (3.5-5.1) Chloride Level 104 mmol/L (98-107) Carbon Dioxide Level 26 mmol/L (21-32) Anion Gap 11 (6-14) Blood Urea Nitrogen 12 mg/dL (8-26) Creatinine 0.9 mg/dL (0.7-1.3) Estimated GFR (Cockcroft-Gault) 91.3 Glucose Level 97 mg/dL (70-99) Calcium Level 8.7 mg/dL (8.5-10.1) Assessment and Plan Assessmemt and Plan Problems: JOSELO MAC MD July 01, 2016 12:56
[2016-07-01] MEDS: VANCOMYCIN PER PHARMACY MC PRN (13:10)
[2016-07-01 15:00] VITALS: BP 141/93
[2016-07-01 19:15] VITALS: BP 155/86
[2016-07-01] MEDS: ENOXAPARIN 40 MG/0.4 ML SYRINGE. SQ SCH (21:21)
[2016-07-01 23:24] VITALS: BP 131/81
[2016-07-02] MEDS: VANCOMYCIN 1.5 GM in IV NORMAL SALINE 500ML BAG 500 ML IV SCH ×2 (01:20→09:27)
[2016-07-02 03:15] VITALS: BP 126/83
[2016-07-02 04:02] LABS: BASO # 0.1 x10^3/uL (0.0-0.2); BASO % 1 % (0-3); EOS % 6 % (0-3); HEMATOCRIT 41.9 % (39.0-53.0); HEMOGLOBIN 14.8 g/dL (13.0-17.5); LYMPH # 1.8 x10^3/uL (1.0-4.8); LYMPH % 21 % (24-48); MEAN CORPUSCULAR HEMOGLOBIN 31 pg (25-35); MEAN CORPUSCULAR HGB CONC 35 g/dL (31-37); MEAN CORPUSCULAR VOLUME 87 fL (79-100); MONO % 11 % (0-9); NEUT % 62 % (31-73); PLATELET COUNT 246 x10^3/uL (140-400); RED BLOOD COUNT 4.83 x10^6/uL (4.30-5.70); RED CELL DISTRIBUTION WIDTH 13.4 % (11.5-14.5); WHITE BLOOD COUNT 8.7 x10^3/uL (4.0-11.0)
[2016-07-02 07:00] VITALS: BP 133/84
[2016-07-02] MEDS: ACETAMINOPHEN 325 MG TABLET. PO PRN (09:26)
[2016-07-02] MEDS ORDERED: LEVO750T31 PO (10:34)
[2016-07-02] MEDS ORDERED: ACET325T9 PO (10:34)
--- NOTE | 2016-07-02 10:41 | PDOC3 ---
Discharge Summary Visit Information Date of Admission: June 28, 2016 Date of Discharge: July 02, 2016 Admitting Diagnosis: sepsis Final Diagnosis 1. RLL PNA: pos CXR; i 2. Sepsis: Strep Pneumo bacteremia, . echo without vegetations. levaquin 7 more days 3. Leukocytosis: 4. obesity, BMI 36 Problems Medical Problems: (1) Bacteremia Status: Acute (2) CAP (community acquired pneumonia) Status: Acute (3) Leukocytosis Status: Acute Brief Hospital Course Allergies Allergies Coded Allergies Type Severity Reaction Last Updated Verified No Known Drug Allergies 06/28/16 No Vital Signs Vital Signs Date Time Temp Pulse Resp B/P (MAP) Pulse Ox O2 Delivery O2 Flow Rate FiO2 07/02/16 08:00 Room Air 07/02/16 07:00 98.8 69 16 133/84 (100) 95 98.8 Lab Results Laboratory Tests Test 07/01/16 05:05 07/02/16 03:05 White Blood Count 6.9 x10^3/uL (4.0-11.0) 8.7 x10^3/uL (4.0-11.0) Red Blood Count 4.75 x10^6/uL (4.30-5.70) 4.83 x10^6/uL (4.30-5.70) Hemoglobin 14.7 g/dL (13.0-17.5) 14.8 g/dL (13.0-17.5) Hematocrit 41.9 % (39.0-53.0) 41.9 % (39.0-53.0) Mean Corpuscular Volume 88 fL (79-100) 87 fL (79-100) Mean Corpuscular Hemoglobin 31 pg (25-35) 31 pg (25-35) Mean Corpuscular Hemoglobin Concent 35 g/dL (31-37) 35 g/dL (31-37) Red Cell Distribution Width 13.4 % (11.5-14.5) 13.4 % (11.5-14.5) Platelet Count 227 x10^3/uL (140-400) 246 x10^3/uL (140-400) Neutrophils (%) (Auto) 53 % (31-73) 62 % (31-73) Lymphocytes (%) (Auto) 30 % (24-48) 21 % (24-48) Monocytes (%) (Auto) 10 % (0-9) 11 % (0-9) Eosinophils (%) (Auto) 7 % (0-3) 6 % (0-3) Basophils (%) (Auto) 1 % (0-3) 1 % (0-3) Neutrophils # (Auto) 3.7 x10^3uL (1.8-7.7) 5.4 x10^3uL (1.8-7.7) Lymphocytes # (Auto) 2.1 x10^3/uL (1.0-4.8) 1.8 x10^3/uL (1.0-4.8) Monocytes # (Auto) 0.7 x10^3/uL (0.0-1.1) 1.0 x10^3/uL (0.0-1.1) Eosinophils # (Auto) 0.5 x10^3/uL (0.0-0.7) 0.5 x10^3/uL (0.0-0.7) Basophils # (Auto) 0.1 x10^3/uL (0.0-0.2) 0.1 x10^3/uL (0.0-0.2) Sodium Level 141 mmol/L (136-145) Potassium Level 3.4 mmol/L (3.5-5.1) Chloride Level 104 mmol/L (98-107) Carbon Dioxide Level 26 mmol/L (21-32) Anion Gap 11 (6-14) Blood Urea Nitrogen 12 mg/dL (8-26) Creatinine 0.9 mg/dL (0.7-1.3) Estimated GFR (Cockcroft-Gault) 91.3 Glucose Level 97 mg/dL (70-99) Calcium Level 8.7 mg/dL (8.5-10.1) Laboratory Tests Test 07/02/16 03:05 White Blood Count 8.7 x10^3/uL (4.0-11.0) Red Blood Count 4.83 x10^6/uL (4.30-5.70) Hemoglobin 14.8 g/dL (13.0-17.5) Hematocrit 41.9 % (39.0-53.0) Mean Corpuscular Volume 87 fL (79-100) Mean Corpuscular Hemoglobin 31 pg (25-35) Mean Corpuscular Hemoglobin Concent 35 g/dL (31-37) Red Cell Distribution Width 13.4 % (11.5-14.5) Platelet Count 246 x10^3/uL (140-400) Neutrophils (%) (Auto) 62 % (31-73) Lymphocytes (%) (Auto) 21 % (24-48) Monocytes (%) (Auto) 11 % (0-9) Eosinophils (%) (Auto) 6 % (0-3) Basophils (%) (Auto) 1 % (0-3) Neutrophils # (Auto) 5.4 x10^3uL (1.8-7.7) Lymphocytes # (Auto) 1.8 x10^3/uL (1.0-4.8) Monocytes # (Auto) 1.0 x10^3/uL (0.0-1.1) Eosinophils # (Auto) 0.5 x10^3/uL (0.0-0.7) Basophils # (Auto) 0.1 x10^3/uL (0.0-0.2) Brief Hospital Course Mr. Light is a 46 old male admit with sepsis, had OSH blood cx in [place] ID consut Cx pos strep pneumo, ECHO clear pt felt well DC home 10 days total abx Discharge Information Condition at Discharge: Improved Follow Up: Weeks Disposition/Orders: D/C to Home Patient Instructions Patient Instructions < 30 min LIZZ NUNES MD July 02, 2016 10:41
--- NOTE | 2016-07-02 10:55 | PDOC ---
Infectious Disease Note Subjective Subjective Comfortable Feeling much better Wants to go home Cough is getting better ROS ROS GEN: Denies fevers, chills, sweats HEENT: Denies blurred vision, sore throat CV: Denies chest pain RESP: Denies shortness of air, cough GI: Denies n/v/d NEURO: Denies confusion, dizziness MSK: Denies weakness, joint pain/swelling Vital Sign Vital Signs Vital Signs Date Time Temp Pulse Resp B/P (MAP) Pulse Ox O2 Delivery O2 Flow Rate FiO2 07/02/16 08:00 Room Air 07/02/16 07:00 98.8 69 16 133/84 (100) 95 98.8 Physical Exam PHYSICAL EXAM GENERAL: NAD, Alert HEENT: PERRL, OC/OP NECK: Supple, no JVD, no LN LUNGS: Clear HEART: S1S2, no gallop, no murmur ABD: Soft, NT, no organomegaly, no rebound, obese EXT: No edema, no cyanosis PHARMACY ACCOUNT DIRECTOR: Alert, oriented x 3, no focal neurologic deficit SKIN: No rash IV: ok Labs Lab Laboratory Tests Test 07/02/16 03:05 White Blood Count 8.7 x10^3/uL (4.0-11.0) Red Blood Count 4.83 x10^6/uL (4.30-5.70) Hemoglobin 14.8 g/dL (13.0-17.5) Hematocrit 41.9 % (39.0-53.0) Mean Corpuscular Volume 87 fL (79-100) Mean Corpuscular Hemoglobin 31 pg (25-35) Mean Corpuscular Hemoglobin Concent 35 g/dL (31-37) Red Cell Distribution Width 13.4 % (11.5-14.5) Platelet Count 246 x10^3/uL (140-400) Neutrophils (%) (Auto) 62 % (31-73) Lymphocytes (%) (Auto) 21 % (24-48) Monocytes (%) (Auto) 11 % (0-9) Eosinophils (%) (Auto) 6 % (0-3) Basophils (%) (Auto) 1 % (0-3) Neutrophils # (Auto) 5.4 x10^3uL (1.8-7.7) Lymphocytes # (Auto) 1.8 x10^3/uL (1.0-4.8) Monocytes # (Auto) 1.0 x10^3/uL (0.0-1.1) Eosinophils # (Auto) 0.5 x10^3/uL (0.0-0.7) Basophils # (Auto) 0.1 x10^3/uL (0.0-0.2) Micro 06/28 Ceftriaxone (meningitis) S Ceftriaxone (non-meningitis) S Erythromycin S Levofloxacin S Meropenem S Penicillin IV (meningitis) S Penicillin IV (non-mening) S Trimethoprim/Sulfa S Vancomycin S Objective Assessment Strep Pneumo sepsis - POA from [facility], [place] micro phone # - 06/27/16 Fever Leukocytosis/bandemia Right pneumonia Plan Plan of Care D/c Vanc 06/28 Home on levofloxacin 750 mg po for 7 days D/w Dr Crow Lind f/u ID office in 7 to 10 days YANCI MCNEAL MD July 02, 2016 10:55
== END 2016-07-02 11:25 | disposition home or self-care (01) | DRG 871 ==
LOC: ER 12:22 → 4 NORTH 13:38
PROVIDERS: ADMIT Internal Medicine; ATTEND Internal Medicine
PROC: 02HV33Z Insertion of Infusion Device into Superior Vena Cava, Percutaneous Approach (ICD-10-PCS; principal; 2016-07-01)
DX: A40.3 Sepsis due to Streptococcus pneumoniae (principal); J18.9 Pneumonia, unspecified organism; E66.9 Obesity, unspecified; G89.29 Other chronic pain; M25.551 Pain in right hip; Z80.1 Family history of malignant neoplasm of trachea, bronchus and lung; Z68.36 Body mass index [BMI] 36.0-36.9, adult
CPT/HCPCS: 36415; 71020; 80048; 80053; 80076; 80202; 81001; 82550; 83605; 83690; 83735; 85007; 85027; 85610; 85730; 86140; 86703; 87040; 87205; 93306; J0696; J1650; J1885; J2405; J3010; J3370; J7030; J7040; J7060

== ENCOUNTER 2019-08-20 19:39 | Emergency (ER) | payer BC ==
[~2019-08-20] VITALS: Ht 172.7 cm; Wt 111.3 kg
[~2019-08-20 19:39] MED LIST: ACET325T9 PO; LEVO750T31 PO
[2019-08-20 20:51] LABS: BASO % 1 % (0-3); EOS % 0 % (0-3); HEMATOCRIT 45.7 % (39.0-53.0); LYMPH # 0.8 x10^3/uL (1.0-4.8); LYMPH % 11 % (24-48); MEAN CORPUSCULAR HEMOGLOBIN 32 pg (25-35); MEAN CORPUSCULAR HGB CONC 35 g/dL (31-37); MEAN CORPUSCULAR VOLUME 90 fL (79-100); MONO # 0.4 x10^3/uL (0.0-1.1); MONO % 6 % (0-9); NEUT # 5.9 x10^3/uL (1.8-7.7); NEUT % 82 % (31-73); PLATELET COUNT 282 x10^3/uL (140-400); RED BLOOD COUNT 5.06 x10^6/uL (4.30-5.70); RED CELL DISTRIBUTION WIDTH 13.3 % (11.5-14.5); WHITE BLOOD COUNT 7.2 x10^3/uL (4.0-11.0)
[2019-08-20 21:00] LABS: CALCIUM 8.1 mg/dL (8.5-10.1); CREATININE 1.2 mg/dL (0.7-1.3); GFR 64.6
[2019-08-20 21:06] LABS: ALBUMIN/GLOBULIN RATIO 0.7 (1.0-1.7); TOTAL BILIRUBIN 0.8 mg/dL (0.2-1.0); TOTAL PROTEIN 7.3 g/dL (6.4-8.2)
--- NOTE | 2019-08-20 21:17 | PHYS DOC ---
Past Medical History Past Medical History: Hypertension, Kidney Stone Past Surgical History: Appendectomy Smoking Status: Never Smoker Alcohol Use: Occasionally Drug Use: None General Adult EDM: Chief Complaint: SHORTNESS OF BREATH HPI: HPI: 49-year-old male past medical history significant for diabetes and hyperlipidemia, presents the ED with complaints of shortness of breath and subjective fever and chills for the past 9 days. Patient states he has had nausea, nonbloody nonbilious vomiting and a headache. Took Tylenol around 530 o'clock this morning. Patient states his two daughters left town for the past week so that they would not be exposed to possible COVID. Patient denies himself any recent travel history. Patient follows with Dr. Connolly. Is tolerating food and drink. ROS: Denies associated melena, hematochezia, hematemesis, chest pressure or heaviness, neck stiffness, neurologic deficits, blurry vision, dysuria, hematuria, flank pain, leg swelling, rash. Allergies: Allergies: Allergies Coded Allergies Type Severity Reaction Last Updated Verified No Known Drug Allergies 06/28/16 No Physical Exam: PE: Constitutional: Well developed, well nourished, no acute distress, non-toxic appearance. [] HENT: Normocephalic, atraumatic, bilateral external ears normal, oropharynx moist, no oral exudates, nose normal. [] Eyes: PERRLA, EOMI, conjunctiva normal, no discharge. [] Neck: Normal range of motion, no tenderness, supple, no stridor. [] Cardiovascular:Heart rate regular rhythm, no murmur [] Lungs & Thorax: Bilateral breath sounds clear to auscultation [] Abdomen: Bowel sounds normal, soft, no tenderness, no masses, no pulsatile masses. [] Skin: Warm, dry, no erythema, no rash. [] Back: No tenderness, no CVA tenderness. [] Extremities: No tenderness, no cyanosis, no clubbing, ROM intact, no edema. [] Neurologic: Alert and oriented X 3, normal motor function, normal sensory function, no focal deficits noted. [] Psychologic: Affect normal, judgement normal, mood normal. [] Current Patient Data: Labs: Laboratory Tests Test 08/20/19 20:35 White Blood Count 7.2 x10^3/uL (4.0-11.0) Red Blood Count 5.06 x10^6/uL (4.30-5.70) Hemoglobin 16.0 g/dL (13.0-17.5) Hematocrit 45.7 % (39.0-53.0) Mean Corpuscular Volume 90 fL (79-100) Mean Corpuscular Hemoglobin 32 pg (25-35) Mean Corpuscular Hemoglobin Concent 35 g/dL (31-37) Red Cell Distribution Width 13.3 % (11.5-14.5) Platelet Count 282 x10^3/uL (140-400) Neutrophils (%) (Auto) 82 % (31-73) H Lymphocytes (%) (Auto) 11 % (24-48) L Monocytes (%) (Auto) 6 % (0-9) Eosinophils (%) (Auto) 0 % (0-3) Basophils (%) (Auto) 1 % (0-3) Neutrophils # (Auto) 5.9 x10^3/uL (1.8-7.7) Lymphocytes # (Auto) 0.8 x10^3/uL (1.0-4.8) L Monocytes # (Auto) 0.4 x10^3/uL (0.0-1.1) Eosinophils # (Auto) 0.0 x10^3/uL (0.0-0.7) Basophils # (Auto) 0.0 x10^3/uL (0.0-0.2) Sodium Level 132 mmol/L (136-145) L Potassium Level 4.0 mmol/L (3.5-5.1) Chloride Level 97 mmol/L (98-107) L Carbon Dioxide Level 28 mmol/L (21-32) Anion Gap 7 (6-14) Blood Urea Nitrogen 13 mg/dL (8-26) Creatinine 1.2 mg/dL (0.7-1.3) Estimated GFR (Cockcroft-Gault) 64.6 BUN/Creatinine Ratio 11 (6-20) Glucose Level 114 mg/dL (70-99) H Calcium Level 8.1 mg/dL (8.5-10.1) L Total Bilirubin 0.8 mg/dL (0.2-1.0) Aspartate Amino Transferase (AST) 118 U/L (15-37) H Alanine Aminotransferase (ALT) 112 U/L (16-63) H Alkaline Phosphatase 48 U/L (46-116) Troponin I Quantitative < 0.017 ng/mL (0.000-0.055) Total Protein 7.3 g/dL (6.4-8.2) Albumin 3.0 g/dL (3.4-5.0) L Albumin/Globulin Ratio 0.7 (1.0-1.7) L Lipase 125 U/L (73-393) Laboratory Tests 08/20/19 20:35 Laboratory Tests 08/20/19 20:35 Vital Signs: Vital Signs Date Time Temp Pulse Resp B/P (MAP) Pulse Ox O2 Delivery O2 Flow Rate FiO2 08/20/19 20:23 99.0 86 17 154/84 (107) 94 Room Air 99.0 EKG: EKG: Sinus rhythm 82 bpm, no axis deviation, right bundle branch block, otherwise normal intervals except for QRS, T wave inversion lead III and V3, no ST elevations or ST depressions Radiology/Procedures: Radiology/Procedures: IMAGING REPORT Signed PATIENT: MIGDALIA AWAD ACCOUNT: [id number] : 1970 LOCATION: ER AGE: 49 SEX: M EXAM STATUS: REG ER ORD. PHYSICIAN: YVONNE BARLOW DO REASON: sob PROCEDURE: CHEST AP ONLY Exam: Chest one view INDICATION: Shortness of breath TECHNIQUE: Frontal view of the chest Comparisons: 06/28/2016 FINDINGS: The cardiomediastinal silhouette and pulmonary vessels are within normal limits. The lung and pleural spaces are clear. IMPRESSION: No acute cardiopulmonary process. Electronically signed by: Guillermo Uerna MD (08/20/2019 9:52 PM) [id number] DICTATED and SIGNED BY: GUILLERMO URENA MD DATE: 08/20/19 215 Impression: Patient very well-appearing in ED, is afebrile, no leukocytosis or tachycardia, is normotensive. Mucous membranes wet, labs are nonspecific with undifferentiated transaminitis. Highly suspect COVID. Will refer to local health department for outpatient testing. Strict ED return precautions were given for increased work of breathing, worsening fever or dehydration. Encouraged PMD follow-up in 24 to 40 hours. All of his questions were answered and he was stable at time of discharge. Course & Med Decision Making: Course & Med Decision Making Pertinent Labs and Imaging studies reviewed. (See chart for details) [] Dragon Disclaimer: Dragon Disclaimer: This electronic medical record was generated, in whole or in part, using a voice recognition dictation system. Departure Departure Impression: Primary Impression: Flu-like symptoms Additional Impressions: Suspected COVID-19 virus infection Transaminitis Disposition: 01 HOME, SELF-CARE Condition: STABLE Referrals: MICHI GARIBAY (PCP) Patient Instructions: Upper Respiratory Infection, Adult Additional Instructions: SUSPECT COVID-19, YOU NEED TO BE TESTED AT LOCAL HEALTH DEPARTMENT. It is an infection caused by a new type of coronavirus. COVID-19 will cause cold-like or mild flu symptoms in most. It can cause more severe symptoms like problems breathing in some. There is no treatment for COVID-19. The body will clear the infection over time. Self-care will help to ease discomfort. Steps to Take: Self-Care Rest as needed. Healthy habits may help you feel better. Steps include: Choose healthy foods including fruits and vegetables. Drink water throughout the day. Get plenty of sleep each night. If you smoke, try to quit. It may ease breathing. Avoid alcohol. Keep Others Healthy The virus can spread to others. Droplets are released every time you sneeze or cough. The droplets can get into the mouth, nose, or eyes of people near you and lead to infection. To lower the chances of spreading COVID-19 to others: Stay at home until your doctor has said it is safe to leave. If you tested positive this will mean staying isolated until both of the following are true: At least 7 days have passed since the start of illness. You are free of fever for at least 72 hours without the use of medicine. During this time: - Avoid public areas, events, or transportation. Do not return to work or school until your doctor has said it is safe to do so. - Call ahead if you need to go to a medical center. Let them know you may have COVID-19. It will help them guide you where to go. They may also ask you to wear a facemask when you come to the office. - If you call for emergency medical services, let them know you may have COVID- 19. While at home: - Try to avoid close contact with others. Stay about 6 feet away. - If possible, spend most of your time in a separate room from others. - Use a face mask if you will be in close contact with others such as sharing a room or vehicle. - Have someone wipe down common surfaces in the home. Use household frontend engineer every day on areas like doorknobs, counters, or sinks. - Cough or sneeze into a tissue. Throw the tissue away right after use. If a tissue is not available, cough or sneeze into your elbow. - Wash your hands often. Wash them after sneezing or coughing. Use soap and water and wash for at least 20 seconds. Alcohol based hand metal cleaner can be used if soap and water is not available. - Do not prepare food for others. Avoid sharing personal items like forks, spoons, or toothbrushes. - Avoid close contact with pets while you are sick. There is no evidence of the virus passing to pets. This is a safety step until more is known about this virus. Isolation can be frustrating. Social interaction can help. Keep in touch with friends and family through phone and tech options. You can still interact with others in your home, just keep a safe distance of about 6 feet. Follow-up: Your doctors office will check in with you to see if there are any changes in your health. You may be asked to keep track of symptoms to share with them. They will also let you know when you are clear to be in public again. Problems to Look Out For: Contact your doctor if your recovery is not going as you expect. Get emergency care if you have problems such as: - Trouble breathing - Nonstop chest pain or pressure - Changes in awareness, confusion, or problems waking - Lips or face have bluish color - Worsening of symptoms If you think you have an emergency, call for emergency medical services right away. As taken from [facility] EMERGENCY DEPARTMENT GENERAL DISCHARGE INSTRUCTIONS Thank you for coming to [facility] Emergency Department (ED) today and trusting us with you care. We trust that you had a positivie experience in our Emergency Department. If you wish to speak to the department management, you may call the sirector at [phone]. YOUR FOLLOW UP INSTRUCTIONS ARE FOLLOWS: 1. Do you have a private Doctor? If you do not have a private doctir, please ask for a resource list of physicians or clinics that may be able to assist you with follow up care. 2. The Emergency Physicain has interpreted your x-rays. The X-Ray specialist will also review them. If there is a change in the findingd, you will be notified in 48 hours when at all possible. 3. A lab test or culture has been done, your results will be reviewed and you will be notified if you need a change in treatment. ADDITIONAL INSTRUCTIONS AND INFORMATION: 1. Your care today has been supervised by a physician who is specially trained in emergency care. Many problems require more than one evaluation for a complete diagnosis and treatment. We recommend that you schedule your follow up appointment as recommended to ensure complete treatment of you illness or injury. If you are unable to obtain follow up care and continue to have a problem, or if your consition worsens, we recommend that you return to the ED. 2. We are not able to safelymdetermine your condition over the phone nor are we able to give sound medical advice over the phone. For these safety reasons, if you call for medical advice we will ask you to come to the ED for further evaluation. 3. If you have any questions regarding these discharge instructions please call the ED at [phone]. SAFETY INFORMATION: In the interest of safety, wellness, and injury prevention; we encourage you to wear your sealbelt, if you smoke; quite smoking, and we encourage family to use a prot ective helmet for bicycling and other sporting events that present an increased risk for head injusry. IF YOUR SYMPTOMS WORSEN OR NEW SYMPTOMS DEVELOP, OR YOU HAVE CONCERNS ABOUT YOUR CONDITION; OR IF YOUR CONDITION WORSENS WHILE YOU ARE WAITING FOR YOUR FOLLOW UP APPOINTMENT; EITHER CONTACT YOUR PRIMARY CARE DOCTOR, THE PHYSICIAN WHOSE NAME AND NUMBER YOU WERE GIVEN, OR RETURN TO THE ED IMMEDIATELY. Justicifation of Admission Dx: Justifications for Admission: Justification of Admission Dx: N/A YVONNE ABARCA DO Aug 20, 2019 21:17
--- NOTE | 2019-08-20 21:55 | RAD ---
Exam: Chest one view INDICATION: Shortness of breath TECHNIQUE: Frontal view of the chest Comparisons: 06/28/2016 FINDINGS: The cardiomediastinal silhouette and pulmonary vessels are within normal limits. The lung and pleural spaces are clear. IMPRESSION: No acute cardiopulmonary process. Electronically signed by: Guillermo Rutherford MD (08/20/2019 9:52 PM) [id number]
[2019-08-20 23:39] VITALS: BP 133/81
[2019-08-21] MEDS ORDERED: ACETAMINOPHEN 500 MG TABLET PO ONE (00:15)
--- NOTE | 2019-08-24 15:58 | EKG ---
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
== END 2019-08-21 00:10 | disposition home or self-care (01) ==
LOC: ER 19:39
DX: Z20.828 Contact with and (suspected) exposure to other viral communicable diseases (principal); R74.0 Nonspecific elevation of levels of transaminase and lactic acid dehydrogenase [LDH]; R06.02 Shortness of breath; R50.9 Fever, unspecified; R11.2 Nausea with vomiting, unspecified; R51 Headache; I10 Essential (primary) hypertension; Z87.442 Personal history of urinary calculi
CPT/HCPCS: 36415; 71045; 80053; 83690; 84484; 85025; 93005; 99285-25

== ENCOUNTER → 2021-07-06 | Outpatient (CLI) | payer BC ==
--- NOTE | 2021-07-07 11:03 | KCIC ---
EXAM: MRI pelvis without IV contrast DATE: 07/06/2021 3:30 PM CLINICAL INDICATION: Reason: MASS OF SOFT TISSUE/RIGHT HIP PAIN / Spl. Instructions: NKI / History: P osterior right hip pain, eval for mass. Pt states tenderness on the bone. COMPARISON: None. TECHNIQUE: Multiplanar, multisequence MR imaging of the pelvis was performed without IV contrast. FINDINGS: Expansile T1 hypointense, T2 hyperintense lesion in the right iliac wing measures 3.4 x 2.4 x 5 cm. Hip: Joint line: Articular cartilage preserved throughout. Labral survey: Limited survey of the acetabular labrum within normal limits. Gluteus: Tendinous attachment of the gluteus musculature including medius within normal limits. Hamstrings:Tendinous attachment of the hamstrings intact. Iliopsoas: Tendinous attachment of the iliopsoas intact. No acute fracture or osteonecrosis. Lucille-articular soft tissues: Negative periarticular mass lesion or focal muscular atrophy. Limited survey of pelvis: Limited survey of the visceral contents of the pelvis within normal limits. IMPRESSION: 5 cm expansile T2 hyperintense lesion in the right iliac wing is seen. This may represent metastasis or myeloma. Sarcoma is also a consideration. Image guided biopsy and orthopedic oncologic evaluation is recommended. Electronically signed by: Nikko Helton MD (07/07/2021 11:00 AM) [id number]
== END ==
LOC: KCIC MRI 15:11
PROVIDERS: ATTEND Orthopaedic Surgery
DX: M89.8X8 Other specified disorders of bone, other site (principal); M79.89 Other specified soft tissue disorders; M25.551 Pain in right hip
CPT/HCPCS: 72195